=== PATIENT | male | born 1960 | race Caucasian/White ===

== ENCOUNTER 2017-12-16 05:32 | Emergency (ER) | payer BC ==
[~2017-12-16] VITALS: Ht 177.8 cm; Wt 147.9 kg
[2017-12-16] MEDS ORDERED: SODIUM CHLORIDE 0.9% 1000ML 1,000 ML IV STA (05:59)
[2017-12-16] MEDS ORDERED: ASPIRIN 81 MG CHEW TAB PO STA (05:59)
[2017-12-16] MEDS ORDERED: ONDANSETRON HCL INJ 2 MG/ML VIAL IV STA (05:59)
[2017-12-16] MEDS ORDERED: MORPHINE SULFATE 2 MG/ML SYR IV STA (05:59)
[2017-12-16 06:14] LABS: BASOPHILS % 0.4 % (0.0-1.0); EOSINOPHILS # (AUTO) 0.2 (0.0-0.4); EOSINOPHILS % 1.7 % (0.0-6.0); HEMATOCRIT 46.6 % (38.2-49.6); HEMOGLOBIN 15.8 g/dL (14.0-18.0); LYMPHOCYTES # (AUTO) 1.6 (1.0-3.2); LYMPHOCYTES % 15.7 % (18.0-39.1); MEAN CORPUSCULAR HEMOGLOBIN 30.5 pg (28-32); MEAN CORPUSCULAR HGB CONC 33.9 g/dL (31-35); MONOCYTES # (AUTO) 1.3 (0.2-0.8); MONOCYTES % 12.4 % (4.4-11.3); NEUTROPHILS # (AUTO) 7.1 (2.1-6.9); NEUTROPHILS % 69.3 % (38.7-80.0); PLATELET COUNT 163 x10e3/uL (140-360); RED BLOOD COUNT 5.18 x10e6/uL (4.3-5.7); RED CELL DISTRIBUTION WIDTH 13.2 % (11.7-14.4)
[2017-12-16] MEDS ORDERED: AMLODIPINE (06:14)
[2017-12-16] MEDS ORDERED: CRESTOR10 MG (06:14)
[2017-12-16] MEDS ORDERED: VALSARTAN (06:14)
[2017-12-16] MEDS ORDERED: LANTUS 3ML100 UNITS/ (06:14)
[2017-12-16 06:16] LABS: CLARITY,URINE CLEAR (CLEAR); COLOR,URINE YELLOW (YELLOW); LEUKOCYTE ESTERASE ,URINE NEGATIVE (NEGATIVE); NITRITE,URINE NEGATIVE (NEGATIVE); PROTEIN,URINE DIPSTICK NEGATIVE (NEGATIVE)
[2017-12-16] MEDS ORDERED: JARDIANCE (06:16)
[2017-12-16] MEDS ORDERED: METFORMIN HCL500 MG PO (06:16)
[2017-12-16 06:17] LABS: BILIRUBIN,URINE NEGATIVE (NEGATIVE); KETONES,URINE NEGATIVE (NEGATIVE); URINE UROBILINOGEN 0.2 mg/dL (0.2 - 1)
[2017-12-16] MEDS ORDERED: VASCEPA (06:18)
[2017-12-16] MEDS ORDERED: TRULICITY (06:18)
[2017-12-16] MEDS ORDERED: TRIAMTERENE-HCTZ1 EA PO (06:20)
[2017-12-16] MEDS ORDERED: BELVIQ (06:20)
[2017-12-16 06:33] LABS: INR 0.84; PROTHROMBIN TIME 12.3 seconds (11.9-14.5)
[2017-12-16 06:34] LABS: PARTIAL THROMBOPLASTIN TIME 28.6 seconds (23.8-35.5)
[2017-12-16 06:45] LABS: ALANINE AMINOTRANSFERASE 19 IU/L (0-55); ALBUMIN 3.8 g/dL (3.5-5.0); ALBUMIN/GLOBULIN RATIO 1.1 (0.8-2.0); ALKALINE PHOSPHATASE 70 IU/L (40-150); ANION GAP 18.9 mmol/L (8-16); BLOOD UREA NITROGEN 12 mg/dL (7-26); BUN/CREATININE RATIO 13 (6-25); CALCIUM 10.1 mg/dL (8.4-10.2); CARBON DIOXIDE 22 mmol/L (22-29); CHLORIDE 106 mmol/L (98-107); CREATINE KINASE 102 IU/L (30-200); CREATININE, SERUM 0.89 mg/dL (0.72-1.25); EST GLOMERULAR FILTRATION RATE > 60 ML/MIN (60-); GLUCOSE 210 mg/dL (74-118); MAGNESIUM 1.9 MG/DL (1.3-2.1); POTASSIUM 3.9 mmol/L (3.5-5.1); SODIUM 143 mmol/L (136-145)
[2017-12-16 06:49] LABS: EPITHELIAL CELLS,URINE RARE /LPF; RBC,URINE 0-5 /HPF (0-5); WBC,URINE (MAN) 0-5 /HPF (0-5)
[2017-12-16 07:06] LABS: B-TYPE NATRIURETIC PEPTIDE2 < 10.0 pg/mL (0-100)
--- NOTE | 2017-12-16 07:46 | Diagnostic Imaging Report ---
PROCEDURE: CHEST SINGLE (PORTABLE) COMPARISON: None. INDICATIONS: CHEST PAIN FINDINGS: Lung volumes are low. Linear opacity in the lung bases. No airspace consolidation or sizable pleural effusion. Normal heart size for technique and degree of inspiration effort. Prominence of the central pulmonary vasculature. No acute osseous abnormality. CONCLUSION: Low lung volumes with subsegmental atelectasis in the bases. Prominence of the central pulmonary vasculature is likely accentuated by technique and low lung volumes. Dictated by: Michael Holbrook M.D. on 12/16/2017 at 7:54 Electronically approved by: Michael Holbrook M.D. on 12/16/2017 at 7:54
--- NOTE | 2017-12-16 08:03 | Diagnostic Imaging Report ---
PROCEDURE: CT scan of the chest WITH intravenous contrast, using pulmonary embolus protocol. TECHNIQUE: The chest was scanned utilizing a multidetector helical scanner from the lung apex through the level of the adrenal glands after the IV administration of 100 cc of Isovue 370. Coronal and sagittal multiplanar reformations were obtained. COMPARISON: Chest radiograph same day. INDICATIONS: shortness of breath FINDINGS: Vasculature: The main pulmonary artery, right and left pulmonary arteries, and their visualized the lobar and segmental branches are patent, without filling defect. The lower lobe segmental arterial branches are suboptimally evaluated secondary to respiratory motion artifact The pulmonary outflow tract is of normal caliber. There is no ectasia or aneurysmal dilatation of the thoracic aorta. Incidental note of a common origin of the innominate and left common carotid artery from the aortic arch. Lungs and Airways: The lung volumes are low. Bandlike opacities, with associated reticular and groundglass opacities within the dependent portions of the lower lobes. Upper lobes are clear. Trachea, mainstem bronchi, and central lobar bronchi are patent. Pleura: No pleural effusion or pneumothorax. Heart and mediastinum: The left lobe of the thyroid is mildly enlarged but without discrete nodule. No axillary, hilar, or mediastinal lymphadenopathy. Heart size is normal. No pericardial effusion. Prominent pericardial fat. Soft tissues: No focal soft tissue abnormality, though evaluation of the soft tissues is limited secondary to beam hardening artifact from contact points with the scanning gantry. Abdomen: Visualized portions of the liver, gallbladder, spleen, pancreas, and adrenals are unremarkable. Cystic lesion is partially visualized and likely projects from the upper pole of the left kidney (average internal attenuation 0-5 Hounsfield units). Bones: No osseous destructive lesions. Probable bone island in the left lateral fourth rib. IMPRESSION: No pulmonary embolus to the level of the segmental branch pulmonary arteries though the lower lobe segmental branches are suboptimally evaluated secondary to respiratory motion artifact. Low lung volumes with atelectatic changes of the lower lobes. Dictated by: Michael Holbrook M.D. on 12/16/2017 at 8:12 Electronically approved by: Michael Holbrook M.D. on 12/16/2017 at 8:12
[2017-12-16] MEDS ORDERED: KETOROLAC TROMETHAMINE 30 MG/ML VIAL ONE (10:45)
[2017-12-16] MEDS ORDERED: KETOROLAC TROMETHAMINE 30 MG/ML VIAL IV STA (10:55)
[2017-12-16 14:15] VITALS: BP 121/79
[2017-12-16] MEDS ORDERED: SODIUM CHLORIDE 0.9% 50ML 50 ML ONE (14:38)
[2017-12-16] MEDS ORDERED: IOPAMIDOL 370 MG/ML 200 ML INFUS..BTL INJ ONE (14:39)
== END 2017-12-16 14:23 | disposition home or self-care (01) ==
LOC: ER 05:32
DX: R07.89 Other chest pain (principal); I10 Essential (primary) hypertension; E11.9 Type 2 diabetes mellitus without complications; E78.5 Hyperlipidemia, unspecified; G47.33 Obstructive sleep apnea (adult) (pediatric)
CPT/HCPCS: 36415; 71045; 71260; 80053; 81001; 82550; 82553; 83605; 83735; 83880; 84484; 85025; 85379; 85610; 85730; 87040; 87086; 99284; J1885; J7030; Q9967